=== PATIENT | male | born 1940 | race African-American/Black ===

== ENCOUNTER 2020-02-23 18:02 | Emergency (ER) | payer OTHER ==
[~2020-02-23] VITALS: Ht 167.6 cm; Wt 108.0 kg
[2020-02-23] MEDS ORDERED: METFORMIN HCL500 MG PO (18:19)
[2020-02-23] MEDS ORDERED: METFORMIN HCL500 M3 PO (18:27)
[2020-02-23 19:21] VITALS: BP 209/98
[2020-02-24] MEDS ORDERED: MOBIC7.5 MG PO (18:06)
== END 2020-02-23 19:22 | disposition home or self-care (01) ==
LOC: ER 18:02
DX: G89.29 Other chronic pain (principal); M25.551 Pain in right hip; I10 Essential (primary) hypertension; Z79.899 Other long term (current) drug therapy; Z88.8 Allergy status to other drugs, medicaments and biological substances

== ENCOUNTER 2020-02-24 17:13 | Emergency (ER) | payer OTHER ==
[~2020-02-24] VITALS: Ht 170.2 cm; Wt 108.0 kg
[~2020-02-24 17:13] MED LIST: METFORMIN HCL500 M3 PO; METFORMIN HCL500 MG PO
[2020-02-24] MEDS ORDERED: MOBIC7.5 MG PO (18:06)
[2020-02-24 18:50] VITALS: BP 186/102
== END 2020-02-24 18:50 | disposition home or self-care (01) ==
LOC: ER 17:13
DX: M16.11 Unilateral primary osteoarthritis, right hip (principal); I10 Essential (primary) hypertension; Z79.899 Other long term (current) drug therapy; Z88.8 Allergy status to other drugs, medicaments and biological substances